=== PATIENT | female | born 1970 | race American Indian/Alaskan Native ===

== ENCOUNTER 2018-05-15 07:26 | Day surgery (SDC) | payer OTHER ==
[~2018-05-15 07:26] MED LIST: Lactated Ringers 1,000 ML IV SCH
[2018-05-15] MEDS ORDERED: Midazolam 1 MG/ML 2 ML SDV ONE (07:33)
[2018-05-15] MEDS ORDERED: Propofol 200 MG/20 ML SDV ONE (07:33)
[2018-05-15] MEDS ORDERED: fentaNYL 100 MCG/2 ML SDV ONE (07:33)
--- NOTE | 2018-05-15 08:10 | PCM.PREANE ---
Preanesthetic Assessment - Anesthesia/Transfusion/Family Hx Anesthesia History: Prior Anesthesia Without Reaction Family History of Anesthesia Reaction: No Transfusion History: No Prior Transfusion(s) Intubation History: Unknown - Review of Systems General: No Symptoms Pulmonary: No Symptoms Cardiovascular: No Symptoms Gastrointestinal: Other (Occult blood in stool,GERD, anemia) Neurological: No Symptoms Other: Reports: None - Physical Assessment O2 Sat by Pulse Oximetry: 96 Respiratory Rate: 15 Vital Signs: Last Vital Signs Temp 36.3 C 05/15/18 07:45 Pulse 72 05/15/18 07:45 Resp 15 05/15/18 07:45 BP 140/85 05/15/18 07:45 Pulse Ox 96 05/15/18 07:45 Height: 1.6 m Weight: 84.368 kg ASA Class: 3 Mental Status: Alert & Oriented x3 Airway Class: Mallampati = 2 Dentition: Reports: Normal Dentition Thyro-Mental Finger Breadths: 3 Mouth Opening Finger Breadths: 3 ROM/Head Extension: Full Lungs: Clear to Auscultation, Normal Respiratory Effort Cardiovascular: Regular Rate, Regular Rhythm - Allergies Allergies/Adverse Reactions: Allergies Allergy/AdvReac Type Severity Reaction Status Date / Time codeine Allergy Nausea and Verified 05/11/18 13:24 Vomiting - Blood Blood Available: No - Anesthesia Plan Pre-Op Medication Ordered: None Beta Reji: Metoprolol Med Last Dose Date: 05/15/18 Med Last Dose Time: 06:00 - Acknowledgements Anesthesia Type Planned: MAC Pt an Appropriate Candidate for the Planned Anesthesia: Yes Alternatives and Risks of Anesthesia Discussed w Pt/Guardian: Yes Pt/Guardian Understands and Agrees with Anesthesia Plan: Yes PreAnesthesia Questionnaire HEENT History: Reports: Other (See Below) Other HEENT History: wears glasses Cardiovascular History: Reports: High Cholesterol, Hypertension Gastrointestinal History: Reports: GERD Genitourinary History: Reports: None Musculoskeletal History: Reports: RA Neurological History: Reports: Migraines Endocrine/Metabolic History: Reports: Diabetes, Type II, Obesity/BMI 30+ Hematologic History: Reports: Anemia - Past Surgical History Head Surgeries/Procedures: Reports: None GI Surgical History: Reports: Cholecystectomy, EGD (years ago in [place]) - SUBSTANCE USE Smoking Status *Q: Never Smoker Recreational Drug Use History: No - HOME MEDS Home Medications: Home Meds Acetaminophen 1 - 2 tab PO ASDIRECTED PRN 05/11/18 [History] Aspirin [[place] Aspirin] 81 mg PO DAILY 05/11/18 [History] Cyanocobalamin (Vitamin B-12) [Vitamin B-12] 1 injection IM ASDIRECTED 05/11/18 [History] Ferrous Sulfate 325 mg PO DAILY 05/11/18 [History] Folic Acid 2 tab PO DAILY 05/11/18 [History] Hydrochlorothiazide 25 mg PO DAILY 05/11/18 [History] Lisinopril 40 mg PO DAILY 05/11/18 [History] Metoprolol Tartrate 50 mg PO BID 05/11/18 [History] Omeprazole 20 mg PO BID 05/11/18 [History] atorvaSTATin Calcium [Atorvastatin Calcium] 40 mg PO DAILY 05/11/18 [History] metFORMIN HCl [Metformin HCl] 1,000 mg PO BID 05/11/18 [History] - CURRENT (IN HOUSE) MEDS Current Meds: Current Medications Lactated Ringer's (Ringers, Lactated) 1,000 mls @ 125 mls/hr IV ASDIRECTED [facility] Last Admin: 05/15/18 08:04 Dose: 125 mls/hr Discontinued Medications Fentanyl (Sublimaze) Confirm Administered Dose 100 mcg .ROUTE .STK-MED ONE Stop: 05/15/18 07:34 Midazolam HCl (Versed 1 Mg/Ml) Confirm Administered Dose 2 mg .ROUTE .STK-MED ONE Stop: 05/15/18 07:34 Propofol (Diprivan 20 Ml) Confirm Administered Dose 200 mg .ROUTE .STK-MED ONE Stop: 05/15/18 07:34
[2018-05-15] MEDS ORDERED: Benzocaine 20% Topical Spray UD MUCMEM ONE (08:13)
--- NOTE | 2018-05-15 09:10 | PCM.OPNOTE ---
- General Post-Op/Procedure Note Date of Surgery/Procedure: 05/15/18 Operative Procedure(s): egd w bx. colonoscopy Findings: see dict [id number] Pre Op Diagnosis: anemia Post-Op Diagnosis: Same Anesthesia Technique: Moderate Sedation Primary Surgeon: Floyd Foster Pathology: egd bx Complications: None Condition: Good
--- NOTE | 2018-05-15 09:43 | PCM48HPAN ---
Post Anesthesia Note - EVALUATION WITHIN 48HRS OF ANESTHETIC Vital Signs in Normal Range: Yes Patient Participated in Evaluation: Yes Respiratory Function Stable: Yes Airway Patent: Yes Cardiovascular Function Stable: Yes Hydration Status Stable: Yes Pain Control Satisfactory: Yes Nausea and Vomiting Control Satisfactory: Yes Mental Status Recovered: Yes Resp Rate: 13 - COMMENTS/OBSERVATIONS Free Text/Narrative:: no anesthesia problems
--- NOTE | 2018-05-15 13:58 | OR ---
SURGEON: Floyd Foster MD DATE OF PROCEDURE: 05/15/2018 PREOPERATIVE DIAGNOSIS: Anemia. POSTOPERATIVE DIAGNOSES: Esophagogastroduodenoscopy diagnosis: Acid reflux, Schatzki ring, and gastric polyp. Colonoscopy diagnosis: Internal hemorrhoids. PROCEDURES PERFORMED: Esophagogastroduodenoscopy with biopsy and colonoscopy. PROCEDURE IN DETAIL: EGD: The patient was taken to the endoscopy room, and with the CLAY PUDDLER, Diprivan was administered. A well-lubricated EGD scope was gently inserted through the oropharynx, down the esophagus, passing through the gastroesophageal junction, into the stomach. The mucosa was examined upon the passage. Any etiology will be noted. Once in the stomach, we continued to advance to the distal antrum, passed through the pylorus into the second portion of the duodenum. Again, the mucosa was examined for any abnormality and etiology. The scope was then retrieved back to the stomach and then retroflexed to look at the fundus of the stomach. If a biopsy was indicated, we will biopsy the antrum, body, and gastroesophageal junction. The air will be sucked out while the scope is retrieved to reduce the patient's discomfort. The patient tolerated the procedure well. There were no intraoperative complications. Dr. Foster was present through the whole procedure. Prior to surgery, a time-out had been called, the patient identified, procedure identified and antibiotic administered. Colonoscopy procedure: The patient was taken to the endoscopy room. A time out was called, patient identified, and procedure identified. Diprivan was then administrated. Patient went from awake to sleep, hearing doctor talking or door closing is normal. Perineum inspection and digital examination were then performed. A well- lubricated colonoscope was gently inserted through the rectum, advanced past the rectosigmoid junction, the descending colon, splenic flexure, transverse colon, hepatic flexure, ascending colon, arrived to the cecum. Cecum was identified as dictated in the finding. Then the scope was carefully withdrawn while attention was paid to the mucosal surface for any abnormality. Air will be sucked out during the scope withdrawal. At the rectum, retroflexed to examine any rectal diseases, fistula or hemorrhoids. Patient tolerated procedure well. There were no intraoperative complications, and Dr. Foster was present throughout the whole procedure. FINDINGS: EGD findings: 1. The patient is easily sedated with CLAY PUDDLER and Diprivan. The patient is soundly snoring. 2. Oropharynx and proximal esophagus are free of disease and no infection or inflammation. Distal esophagus at GE junction at 40 shows moderate salmon- colored change suggestive of acid reflux. Stomach rugae is normal in appearance. A large amount of bile in the system and no food, no blood, no flank ulcer, and there is an inflamed antrum, quite inflamed. Duodenum was grossly normal in appearance. Scope retrieved back to the stomach and looked at the fundus, there is no hiatal hernia. There are many small 1 mm tiny gastric polyp. Biopsy done at antrum, gastric polyp in the greater curvature and GE junction at 40 and sucked out the gas while scope pulling out. Colonoscopy findings: 1. The patient is easily sedated with CLAY PUDDLER and Diprivan. The patient is soundly snoring. 2. The patient's bowel prep is below average. Large amount kind of creamy opaque stool. This is a compromised study because of the bowel prep and there is no semi-formed stool though and colon is rather straight forward. Cecum indicated by ileocecal fold, one-to-one indentation, light emittance, and appendiceal orifice. Mucosa examined upon scope pulling out with constant irrigation. The patient does not have polyp, diverticulosis, mass, growth, inflammation, stricture, ulceration, AV malformation, blood, or ulceration, none of those and the stool was yellow in color and the patient has moderate internal hemorrhoids. No external hemorrhoids. The patient would benefit from repeat colonoscopy in 10 years from today or if clinically indicated otherwise. MECCA RICHARDSON /[id number] CHRISTOS
== END 2018-05-15 09:50 | disposition home or self-care (01) ==
LOC: MW.SDS 07:26
PROVIDERS: ATTEND Surgery
DX: D64.9 Anemia, unspecified (principal); R19.5 Other fecal abnormalities; K21.9 Gastro-esophageal reflux disease without esophagitis; K31.7 Polyp of stomach and duodenum; K20.9 Esophagitis, unspecified; K22.2 Esophageal obstruction; K64.8 Other hemorrhoids; I10 Essential (primary) hypertension; E11.9 Type 2 diabetes mellitus without complications; E66.9 Obesity, unspecified; Z68.32 Body mass index [BMI] 32.0-32.9, adult; Z79.82 Long term (current) use of aspirin; Z79.899 Other long term (current) drug therapy; Z88.5 Allergy status to narcotic agent
CPT/HCPCS: 36415; 43239; 45378; 84703; A9270; J2250; J3010; J7120; J2704

== ENCOUNTER 2018-11-25 16:48 | Emergency (ER) | payer OTHER ==
[2018-11-25] MEDS ORDERED: Sodium Chloride 0.9% 10 ML Syringe FLUSH PRN (17:18)
[2018-11-25] MEDS ORDERED: Sodium Chloride 0.9% 2.5 ML Syringe FLUSH PRN (17:18)
--- NOTE | 2018-11-25 17:19 | EDM.PDOC ---
ED HPI GENERAL MEDICAL PROBLEM - General Chief Complaint: General Stated Complaint: RIGHT ARM PAIN, SOME SHORTNESS OF BREATH Time Seen by Provider: 11/25/18 17:19 Source of Information: Reports: Patient History Limitations: Reports: No Limitations - History of Present Illness INITIAL COMMENTS - FREE TEXT/NARRATIVE: HISTORY AND PHYSICAL: History of present illness: Patient is a 48-year-old female here with complaint of right shoulder and arm pain. She states it started yesterday, denies any injury or trauma. Has been having tingling into her hand. She states she called her daughter who is a nurse and daughter was concerned about cardiac cause which prompted her to come to the ED. She reports her neck feeling sore but gets this often and has had an upset stomach and an episode of vomiting and diarrhea which she also states it' s not unusual for her. She denies chest pain, shortness of breath, headache, dizziness, lightheadness, blurry vision, fevers, chills, cough, congestion, sore throat. Past medical history significant for hypertension and type 2 diabetes. Review of systems: As per history of present illness and below otherwise all systems reviewed and negative. Past medical history: As per history of present illness and as reviewed below otherwise noncontributory. Surgical history: As per history of present illness and as reviewed below otherwise noncontributory. Social history: No reported history of drug or alcohol abuse. Family history: As per history of present illness and as reviewed below otherwise noncontributory. Physical exam: General: Patient sitting comfortably in no acute distress and nontoxic appearing HEENT: Atraumatic, normocephalic, pupils reactive, negative for conjunctival pallor or scleral icterus, mucous membranes moist, throat clear, neck supple, nontender, trachea midline. No meningeal signs. Lungs: Clear to auscultation, breath sounds equal bilaterally, chest nontender. Heart: S1S2, regular, negative for clicks, rubs, or overt murmur. Abdomen: Soft, nondistended, nontender. Negative for masses or hepatosplenomegaly. Negative for costovertebral tenderness. Pelvis: Stable nontender. Genitourinary: Deferred. Rectal: Deferred. Spine: No vertebral tenderness or step offs to palpaption. Mild right cervical paraspinal tenderness. Extremities: Pain to palpation of lateral right deltoid, pain and limited ROM with abduction of the shoulder. Atraumatic, negative for cords or calf pain. Neurovascular unremarkable. Neuro: Awake, alert, oriented. Cranial nerves II through XII unremarkable. Cerebellum unremarkable. Motor and sensory unremarkable throughout. Exam nonfocal. Notes: Patient was offered admission for her concern about cardiac cause of her pain although she continues to denies chest pain or shortness of breath. She declines at this time. Diagnostics: CBC, CMP, troponin, EKG, CXR, shoulder x-ray Therapeutics: Toradol 30mg IV Prescriptions: Voltaran gel Impression: Right shoulder pain Plan: 1. Take tylenol and use cream as instructed. Heat or ice as needed. 2. Follow up with primary care provider 3. Return to ED as needed as discussed Definitive disposition and diagnosis as appropriate pending reevaluation and review of above. Right Arm Pain Score (Numeric/FACES): 8 - Related Data Allergies Allergy/AdvReac Type Severity Reaction Status Date / Time codeine Allergy Nausea and Verified 11/25/18 17:04 Vomiting Home Meds: Home Meds Acetaminophen 1 - 2 tab PO ASDIRECTED PRN 05/11/18 [History] Lisinopril 40 mg PO DAILY 05/11/18 [History] Omeprazole 20 mg PO BID 05/11/18 [History] atorvaSTATin Calcium [Atorvastatin Calcium] 40 mg PO DAILY 05/11/18 [History] metFORMIN HCl [Metformin HCl] 1,000 mg PO BID 05/11/18 [History] Diclofenac Sodium 100 gm TP BID #1 tube 11/25/18 [Rx] Labetalol HCl [Labetalol] 400 mg PO TID 11/25/18 [History] Spironolactone [Aldactone] 25 mg PO DAILY 11/25/18 [History] Past Medical History HEENT History: Reports: Other (See Below) Other HEENT History: wears glasses Cardiovascular History: Reports: High Cholesterol, Hypertension Gastrointestinal History: Reports: GERD Genitourinary History: Reports: None Musculoskeletal History: Reports: RA Neurological History: Reports: Migraines Endocrine/Metabolic History: Reports: Diabetes, Type II, Obesity/BMI 30+ Hematologic History: Reports: Anemia - Past Surgical History Head Surgeries/Procedures: Reports: None GI Surgical History: Reports: Cholecystectomy, Colonoscopy, EGD Female Surgical History: Reports: Other (See Below) Other Female Surgeries/Procedures: "assure" coils in her tubes Social & Family History - Family History Family Medical History: Noncontributory - Tobacco Use Smoking Status *Q: Never Smoker - Recreational Drug Use Recreational Drug Use: No ED ROS GENERAL - Review of Systems Review Of Systems: ROS reveals no pertinent complaints other than HPI. ED EXAM, GENERAL - Physical Exam Exam: See Below (see dictation) Course - Vital Signs Last Recorded V/S: Last Vital Signs Temp 97.1 F 11/25/18 17:01 Pulse 85 11/25/18 18:26 Resp 18 11/25/18 17:01 BP 130/84 11/25/18 18:26 Pulse Ox 97 11/25/18 18:26 - Orders/Labs/Meds Orders: Active Orders 24 hr Category Date Time Status EKG Documentation Completion [RC] STAT Care 11/25/18 17:18 Active Chest 1V Frontal [CR] Stat Exams 11/25/18 17:18 Taken Shoulder Comp Rt [CR] Stat Exams 11/25/18 17:19 Taken INFLUENZA A+B AG SCREEN [RM] Stat Lab 11/25/18 17:19 Ordered Sodium Chloride 0.9% [Saline Flush] Med 11/25/18 17:18 Active 10 ml FLUSH ASDIRECTED PRN Sodium Chloride 0.9% [Saline Flush] Med 11/25/18 17:18 Active 2.5 ml FLUSH ASDIRECTED PRN Saline Lock Insert [OM.PC] Stat Oth 11/25/18 17:18 Ordered Medication Orders Sodium Chloride (Saline Flush) 10 ml FLUSH ASDIRECTED PRN PRN Reason: Keep Vein Open Sodium Chloride (Saline Flush) 2.5 ml FLUSH ASDIRECTED PRN PRN Reason: Keep Vein Open Labs: Laboratory Tests 11/25/18 11/25/18 Range/Units 17:30 17:30 WBC 5.63 (4.0-11.0) K/uL RBC 4.78 (4.30-5.90) M/uL Hgb 13.8 (12.0-16.0) g/dL Hct 40.2 (36.0-46.0) % MCV 84.1 (80.0-98.0) fL MCH 28.9 (27.0-32.0) pg MCHC 34.3 (31.0-37.0) g/dL RDW Std Deviation 44.1 (28.0-62.0) fl RDW Coeff of Rashel 14 (11.0-15.0) % Plt Count 256 (150-400) K/uL MPV 9.80 (7.40-12.00) fL Neut % (Auto) 52.3 (48.0-80.0) % Lymph % (Auto) 36.9 (16.0-40.0) % [place] % (Auto) 7.6 (0.0-15.0) % Eos % (Auto) 3.0 (0.0-7.0) % Baso % (Auto) 0.2 (0.0-1.5) % Neut # (Auto) 2.9 (1.4-5.7) K/uL Lymph # (Auto) 2.1 (0.6-2.4) K/uL [place] # (Auto) 0.4 (0.0-0.8) K/uL Eos # (Auto) 0.2 (0.0-0.7) K/uL Baso # (Auto) 0.0 (0.0-0.1) K/uL Nucleated RBC % 0.0 /100WBC Nucleated RBCs # 0 K/uL Sodium 141 (136-145) mmol/L Potassium 4.0 (3.5-5.1) mmol/L Chloride 103 (98-107) mmol/L Carbon Dioxide 27.5 (21.0-32.0) mmol/L BUN 13 (7.0-18.0) mg/dL Creatinine 0.8 (0.6-1.0) mg/dL Est Cr Clr Drug Dosing 71.14 mL/min Estimated GFR (MDRD) > 60.0 ml/min Glucose 150 H (74-106) mg/dL Calcium 9.7 (8.5-10.1) mg/dL Total Bilirubin 0.5 (0.2-1.0) mg/dL AST 15 (15-37) IU/L ALT 38 (14-63) IU/L Alkaline Phosphatase 60 (46-116) U/L Troponin I < 0.050 (0.000-0.056) ng/mL Total Protein 7.8 (6.4-8.2) g/dL Albumin 4.0 (3.4-5.0) g/dL Globulin 3.8 (2.6-4.0) g/dL Albumin/Globulin Ratio 1.1 (0.9-1.6) Meds: Medications Generic Name Dose Route Start Last Admin Trade Name Freq PRN Reason Stop Dose Admin Sodium Chloride 10 ml 11/25/18 17:18 Saline Flush FLUSH ASDIRECTED PRN Keep Vein Open Sodium Chloride 2.5 ml 11/25/18 17:18 Saline Flush FLUSH ASDIRECTED PRN Keep Vein Open Discontinued Medications Generic Name Dose Route Start Last Admin Trade Name Freq PRN Reason Stop Dose Admin Ketorolac Tromethamine 30 mg 11/25/18 17:36 11/25/18 17:54 Toradol IVPUSH 11/25/18 17:37 30 mg ONETIME ONE Administration Departure - Departure Time of Disposition: 18:27 Disposition: Home, Self-Care 01 Condition: Good Clinical Impression: Right shoulder pain - Discharge Information Prescriptions: Diclofenac Sodium 100 gm TP BID #1 tube Referrals: PCP,None [Primary Care Provider] - Forms: ED Department Discharge Additional Instructions: The following information is given to patients seen in the emergency department who are being discharged to home. This information is to outline your options for follow-up care. We provide all patients seen in our emergency department with a follow-up referral. The need for follow-up, as well as the timing and circumstances, are variable depending upon the specifics of your emergency department visit. If you don't have a primary care physician on staff, we will provide you with a referral. We always advise you to contact your personal physician following an emergency department visit to inform them of the circumstance of the visit and for follow-up with them and/or the need for any referrals to a consulting specialist. The emergency department will also refer you to a specialist when appropriate. This referral assures that you have the opportunity for follow-up care with a specialist. All of these measure are taken in an effort to provide you with optimal care, which includes your follow-up. Under all circumstances we always encourage you to contact your private physician who remains a resource for coordinating your care. When calling for follow-up care, please make the office aware that this follow-up is from your recent emergency room visit. If for any reason you are refused follow-up, please contact the [facility] Emergency Department at and asked to speak to the emergency department charge nurse. AMIRA Chi [facility] [address] [place] [address] [facility] [address] [place] [address] 1. Take tylenol and use cream as instructed. Heat or ice as needed. 2. Follow up with primary care provider 3. Return to ED as needed as discussed - My Orders Last 24 Hours: My Active Orders 11/25/18 17:18 EKG Documentation Completion [RC] STAT Chest 1V Frontal [CR] Stat Sodium Chloride 0.9% [Saline Flush] 10 ml FLUSH ASDIRECTED PRN Sodium Chloride 0.9% [Saline Flush] 2.5 ml FLUSH ASDIRECTED PRN Saline Lock Insert [OM.PC] Stat 11/25/18 17:19 Shoulder Comp Rt [CR] Stat INFLUENZA A+B AG SCREEN [RM] Stat - Assessment/Plan Last 24 Hours: My Active Orders 11/25/18 17:18 EKG Documentation Completion [RC] STAT Chest 1V Frontal [CR] Stat Sodium Chloride 0.9% [Saline Flush] 10 ml FLUSH ASDIRECTED PRN Sodium Chloride 0.9% [Saline Flush] 2.5 ml FLUSH ASDIRECTED PRN Saline Lock Insert [OM.PC] Stat 11/25/18 17:19 Shoulder Comp Rt [CR] Stat INFLUENZA A+B AG SCREEN [RM] Stat
[2018-11-25] MEDS ORDERED: Ketorolac 30 MG/ML SDV IVPUSH ONE (17:36)
[2018-11-25 18:04] LABS: CHLORIDE,CL 103 mmol/L (98-107); SODIUM,NA 141 mmol/L (136-145)
--- NOTE | 2018-11-26 13:22 | CR ---
EXAM DATE: 11/25/18 PATIENT'S AGE: 48 Patient: JIGAR CARABALLO Facility: [place], [place] Site . Site : 1970 Study: XRay Shoulder Right [id number] 5:52:09 PM Ordering Physician: Doctor Gallo Final Report: INDICATION: Shoulder pain. TECHNIQUE: Three views. FINDINGS: There is no fracture/dislocation/acute bone or joint abnormality identified. Mild hypertrophic change at the acromioclavicular joint. IMPRESSION: No radiographic evidence of fracture. Mild degenerative change. Dictated by Basilio Ruvalcaba MD @ Nov 25 2018 6:07PM (Electronic Signature) Report Signed by Proxy. CHRISTOS
--- NOTE | 2018-11-26 13:24 | CR ---
EXAM DATE: 11/25/18 PATIENT'S AGE: 48 Patient: JIGAR CARABALLO Facility: [place], [place] Site . Site : 1970 Study: XRay Chest [id number]/[id number] 5:53:31 PM Ordering Physician: Doctor Gallo Final Report: INDICATION: High blood pressure, lightheaded, right arm/shoulder pain. COMPARISON: None. FINDINGS: Heart mediastinum and pulmonary vessels are within normal limits. The lungs are clear. No evidence of infiltrate, nodule/mass/pneumothorax. Impression: Negative single-view chest. Dictated by Basilio Ruvalcaba MD @ Nov 25 2018 6:09PM (Electronic Signature) Report Signed by Proxy. CHRISTOS
== END 2018-11-25 18:43 | disposition home or self-care (01) ==
LOC: MW.ED 16:48
DX: M25.511 Pain in right shoulder (principal); I10 Essential (primary) hypertension; E11.9 Type 2 diabetes mellitus without complications; E66.9 Obesity, unspecified; Z79.899 Other long term (current) drug therapy; Z88.5 Allergy status to narcotic agent
CPT/HCPCS: 36415; 71045; 73030; 80053; 84484; 85025; 93005; 96374; 99284; J1885

== ENCOUNTER 2019-02-12 19:08 | Emergency (ER) | payer OTHER ==
[2019-02-12] MEDS ORDERED: HYDROmorphone 1 MG/ML Syringe IVPUSH ONE (19:35)
[2019-02-12] MEDS ORDERED: Ketorolac 30 MG/ML SDV IVPUSH ONE (19:35)
[2019-02-12] MEDS ORDERED: Ondansetron 4 MG/2 ML SDV IVPUSH ONE (19:36)
[2019-02-12] MEDS ORDERED: Sodium Chloride 0.9% 10 ML Syringe FLUSH PRN (19:36)
[2019-02-12] MEDS ORDERED: Sodium Chloride 0.9% 2.5 ML Syringe FLUSH PRN (19:36)
--- NOTE | 2019-02-12 19:39 | EDM.PDOC ---
ED HPI GENERAL MEDICAL PROBLEM - General Chief Complaint: Back Pain or Injury Stated Complaint: PT HAS BACK PAIN Time Seen by Provider: 02/12/19 19:21 - History of Present Illness INITIAL COMMENTS - FREE TEXT/NARRATIVE: HISTORY AND PHYSICAL: History of present illness: Patient's 48-year-old white female with history of chronic intermittent low back pain has been managed without medical involvement to date who comes in now with 2 days of worsening back pain that is in her left mid buttock. She denies numbness weakness incontinence or retention bowel or bladder denies other complaints Review of systems: As per history of present illness and below otherwise all systems reviewed and negative. Past medical history: As per history of present illness and as reviewed below otherwise noncontributory. Surgical history: As per history of present illness and as reviewed below otherwise noncontributory. Social history: No reported history of drug or alcohol abuse. Family history: As per history of present illness and as reviewed below otherwise noncontributory. Physical exam: HEENT: Atraumatic, normocephalic, pupils reactive, negative for conjunctival pallor or scleral icterus, mucous membranes moist, throat clear, neck supple, nontender, trachea midline. Lungs: Clear to auscultation, breath sounds equal bilaterally, chest nontender. Heart: S1S2, regular, negative for clicks, rubs, or JVD. Abdomen: Soft, nondistended, nontender. Negative for masses or hepatosplenomegaly. Negative for costovertebral tenderness. Pelvis: Stable nontender. Genitourinary: Deferred. Rectal: Deferred. Extremities: Atraumatic, negative for cords or calf pain. Neurovascular unremarkable. Neuro: Awake, alert, oriented. Cranial nerves II through XII unremarkable. Cerebellum unremarkable. Motor and sensory unremarkable throughout. Exam nonfocal. Back: Patient has pain over her left sciatic notch motor and sensory are unremarkable Diagnostics: CT lumbar spine Therapeutics: Saline lock Dilaudid 1 mg IV Toradol 30 mg IV Zofran 4 mg IV Impression: #1 low back pain #2 left sciatic Definitive disposition and diagnosis as appropriate pending reevaluation and review of above. 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 Left Back Pain Score (Numeric/FACES): 10 - Related Data Allergies Allergy/AdvReac Type Severity Reaction Status Date / Time codeine Allergy Nausea and Verified 02/12/19 19:26 Vomiting Home Meds: Home Meds Acetaminophen 1 - 2 tab PO ASDIRECTED PRN 05/11/18 [History] Lisinopril 40 mg PO DAILY 05/11/18 [History] Omeprazole 20 mg PO BID 05/11/18 [History] atorvaSTATin Calcium [Atorvastatin Calcium] 40 mg PO DAILY 05/11/18 [History] metFORMIN HCl [Metformin HCl] 1,000 mg PO BID 05/11/18 [History] Labetalol HCl [Labetalol] 400 mg PO BID 11/25/18 [History] Spironolactone [Aldactone] 25 mg PO DAILY 11/25/18 [History] Metoprolol/Hydrochlorothiazide [Metoprolol-HCTZ 100-25 MG] 1 each PO BEDTIME [History] Past Medical History HEENT History: Reports: Other (See Below) Other HEENT History: wears glasses Cardiovascular History: Reports: High Cholesterol, Hypertension Gastrointestinal History: Reports: GERD Genitourinary History: Reports: None Musculoskeletal History: Reports: RA Neurological History: Reports: Migraines Endocrine/Metabolic History: Reports: Diabetes, Type II, Obesity/BMI 30+ Hematologic History: Reports: Anemia Immunologic History: Reports: None - Past Surgical History Head Surgeries/Procedures: Reports: None GI Surgical History: Reports: Cholecystectomy, Colonoscopy, EGD Female Surgical History: Reports: Other (See Below) Other Female Surgeries/Procedures: "assure" coils in her tubes Social & Family History - Family History Family Medical History: Noncontributory - Tobacco Use Smoking Status *Q: Never Smoker - Caffeine Use Caffeine Use: Reports: Coffee, Tea - Recreational Drug Use Recreational Drug Use: No ED ROS GENERAL - Review of Systems Review Of Systems: ROS reveals no pertinent complaints other than HPI. ED EXAM, GENERAL - Physical Exam Exam: See Below (See dictation) Course - Vital Signs Last Recorded V/S: Last Vital Signs Temp 36.1 C 02/12/19 19:21 Pulse 94 02/12/19 19:21 Resp 18 02/12/19 19:21 BP 168/95 H 02/12/19 19:21 Pulse Ox 96 02/12/19 19:21 - Orders/Labs/Meds Orders: Active Orders 24 hr Category Date Time Status Sodium Chloride 0.9% [Saline Flush] Med 02/12/19 19:36 Active 10 ml FLUSH ASDIRECTED PRN Sodium Chloride 0.9% [Saline Flush] Med 02/12/19 19:36 Active 2.5 ml FLUSH ASDIRECTED PRN Saline Lock Insert [OM.PC] Stat Oth 02/12/19 19:36 Ordered Medication Orders Sodium Chloride (Saline Flush) 10 ml FLUSH ASDIRECTED PRN PRN Reason: Keep Vein Open Sodium Chloride (Saline Flush) 2.5 ml FLUSH ASDIRECTED PRN PRN Reason: Keep Vein Open Meds: Medications Generic Name Dose Route Start Last Admin Trade Name Freq PRN Reason Stop Dose Admin Sodium Chloride 10 ml 02/12/19 19:36 Saline Flush FLUSH ASDIRECTED PRN Keep Vein Open Sodium Chloride 2.5 ml 02/12/19 19:36 Saline Flush FLUSH ASDIRECTED PRN Keep Vein Open Discontinued Medications Generic Name Dose Route Start Last Admin Trade Name Freq PRN Reason Stop Dose Admin Hydromorphone HCl 1 mg 02/12/19 19:35 02/12/19 19:59 Dilaudid IVPUSH 02/12/19 19:36 1 mg ONETIME ONE Administration Ketorolac Tromethamine 30 mg 02/12/19 19:35 02/12/19 19:59 Toradol IVPUSH 02/12/19 19:36 30 mg ONETIME ONE Administration Ondansetron HCl 4 mg 02/12/19 19:36 02/12/19 19:59 Zofran IVPUSH 02/12/19 19:37 4 mg ONETIME ONE Administration Departure - Departure Time of Disposition: 19:38 Disposition: Home, Self-Care 01 Condition: Good Clinical Impression: Sciatica, Low back pain - Discharge Information Referrals: PCP,None [Primary Care Provider] - Forms: ED Department Discharge Additional Instructions: The following information is given to patients seen in the emergency department who are being discharged to home. This information is to outline your options for follow-up care. We provide all patients seen in our emergency department with a follow-up referral. The need for follow-up, as well as the timing and circumstances, are variable depending upon the specifics of your emergency department visit. If you don't have a primary care physician on staff, we will provide you with a referral. We always advise you to contact your personal physician following an emergency department visit to inform them of the circumstance of the visit and for follow-up with them and/or the need for any referrals to a consulting specialist. The emergency department will also refer you to a specialist when appropriate. This referral assures that you have the opportunity for followup care with a specialist. All of these measure are taken in an effort to provide you with optimal care, which includes your followup. Under all circumstances we always encourage you to contact your private physician who remains a resource for coordinating your care. When calling for followup care, please make the office aware that this follow-up is from your recent emergency room visit. If for any reason you are refused follow-up, please contact the emergency department at and asked to speak to the emergency department charge nurse. Ultram Medrol is prescribed diclofenac as prescribed and follow primary medical doctor return as needed as discussed[] - My Orders Last 24 Hours: My Active Orders 02/12/19 19:36 Sodium Chloride 0.9% [Saline Flush] 10 ml FLUSH ASDIRECTED PRN Sodium Chloride 0.9% [Saline Flush] 2.5 ml FLUSH ASDIRECTED PRN Saline Lock Insert [OM.PC] Stat - Assessment/Plan Last 24 Hours: My Active Orders 02/12/19 19:36 Sodium Chloride 0.9% [Saline Flush] 10 ml FLUSH ASDIRECTED PRN Sodium Chloride 0.9% [Saline Flush] 2.5 ml FLUSH ASDIRECTED PRN Saline Lock Insert [OM.PC] Stat
--- NOTE | 2019-02-12 20:38 | CT ---
INDICATION: Pain with left leg numbness TECHNIQUE: CT lumbar spine without contrast. COMPARISON: None FINDINGS: Vertebral alignment: Alignment is normal. Vertebrae: There are no fractures or suspicious bony lesions. Discs and facet joints: Disc spaces and facets are within normal limits. Extraspinal findings: Status post cholecystectomy. Bilateral Essure clips noted in the uterus IMPRESSION: Unremarkable lumbar spine CT. Status post cholecystectomy and placement of bilateral Essure clips. Please note that all CT scans at this facility use dose modulation, iterative reconstruction, and/or weight-based dosing when appropriate to reduce radiation dose to as low as reasonably achievable. Dictated by Sheri Wells MD @ Feb 12 2019 8:38PM Signed by Dr. Sheri Wells @ Feb 12 2019 8:38PM
[2019-02-12] MEDS ORDERED: LORazepam 2 MG/ML SDV IVPUSH ONE (20:58)
[2019-02-12] MEDS ORDERED: LORazepam 2 MG/ML SDV ONE (21:01)
== END 2019-02-12 21:30 | disposition home or self-care (01) ==
LOC: MW.ED 19:08
DX: M54.42 Lumbago with sciatica, left side (principal); I10 Essential (primary) hypertension; E78.00 Pure hypercholesterolemia, unspecified; E11.9 Type 2 diabetes mellitus without complications; K21.9 Gastro-esophageal reflux disease without esophagitis; Z79.84 Long term (current) use of oral hypoglycemic drugs; Z79.899 Other long term (current) drug therapy; Z88.5 Allergy status to narcotic agent
CPT/HCPCS: 72131; 96374; 96375; 99283; J1170; J1885; J2060; J2405